=== PATIENT | male | born 1965 | race African-American/Black ===

== ENCOUNTER 2022-02-06 09:41 | Inpatient (IN) | payer OTHER ==
[2022-02-06 11:31] VITALS: BMI 23.0
[2022-02-06] MEDS ORDERED: ONDANSETRON *ODT* 4 MG TABLET SL PRN (12:12)
[2022-02-06] MEDS ORDERED: LOPERAMIDE HCL 2 MG CAPSULE PO PRN (12:12)
[2022-02-06] MEDS ORDERED: DICYCLOMINE HCL 10 MG CAPSULE PO PRN (12:12)
[2022-02-06] MEDS ORDERED: BENZOCAINE/MENTHOL (CHLORASEPTIC ) LOZENGE MM PRN (12:12)
[2022-02-06] MEDS ORDERED: NICOTINE POLACRILEX 2 MG GUM BUC PRN (12:12)
[2022-02-06] MEDS ORDERED: MAG HYDROX/AL HYDROX/SIMETH 30 ML UNIT-DOSE CUP PO PRN (12:12)
[2022-02-06] MEDS ORDERED: BISMUTH SUBSALICYLATE 524 MG/30 ML PO PRN (12:12)
[2022-02-06] MEDS ORDERED: ACETAMINOPHEN 325 MG TABLET (FP) PO PRN ×2 (12:12)
[2022-02-06] MEDS ORDERED: IBUPROFEN 400 MG TABLET (FP) PO PRN (12:12)
[2022-02-06] MEDS ORDERED: IBUPROFEN 600 MG TABLET (FP) PO PRN (12:12)
[2022-02-06] MEDS ORDERED: METHOCARBAMOL 500 MG TABLET PO PRN (12:12)
[2022-02-06] MEDS ORDERED: NICOTINE 10 MG CARTRIDGE (INHALER) IH PRN (12:12)
[2022-02-06] MEDS ORDERED: MAGNESIUM HYDROX 2400MG/30ML ORAL SUSPENSION 30 ML CUP PO PRN (12:12)
[2022-02-06] MEDS ORDERED: MAGNESIUM CITRATE 300 ML BOTTLE PO PRN (12:12)
[2022-02-06] MEDS ORDERED: chlordiazePOXIDE HCL 25 MG CAPSULE PO PRN (12:30)
[2022-02-06] MEDS: FLUOCINONIDE 0.05% CREAM (60 GM TUBE) TP SCH ×2 (14:06→23:08)
[2022-02-06] MEDS: hydrOXYzine PAMOATE 25 MG CAPSULE (FP) PO SCH ×3 (14:06→23:08)
[2022-02-06] MEDS: chlordiazePOXIDE HCL 25 MG CAPSULE PO SCH ×2 (18:24→23:08)
[2022-02-06] MEDS: MELATONIN 5 MG TABLETS PO SCH (23:08)
[2022-02-06] MEDS: THIAMINE HCL 100 MG TABLET (FP) PO SCH (23:08)
[2022-02-07] MEDS: hydrOXYzine PAMOATE 25 MG CAPSULE (FP) PO SCH ×5 (06:20→23:06)
[2022-02-07] MEDS: chlordiazePOXIDE HCL 25 MG CAPSULE PO SCH ×4 (06:20→23:06)
[2022-02-07 10:28] LABS: HEMATOCRIT 25.1 % (35.4-49); HEMOGLOBIN 8.2 GM/dL (11.7-16.9); MCH 28.3 pg (25.7-33.7); MCHC 32.8 g/dl (32.0-35.9); MEAN CELL VOLUME 86.3 fl (80-96); MEAN PLT VOLUME 7.7 fl (7.5-11.1); PLATELET COUNT 282 10^3/uL (134-434); RBC 2.91 M/mm3 (4.00-5.60); RDW 19.6 % (11.9-15.9); WHITE BLOOD COUNT 4.3 K/mm3 (4.0-10.0)
[2022-02-07] MEDS: NICOTINE 21 MG/24 HOURS TOPICAL PATCH TD SCH (10:54)
[2022-02-07] MEDS: FLUOCINONIDE 0.05% CREAM (60 GM TUBE) TP SCH ×2 (10:54→23:06)
[2022-02-07] MEDS: PRENATAL VITAMINS W/ FOLIC ACID TABLET (FP) PO SCH (10:54)
[2022-02-07 11:04] LABS: CALCIUM 8.2 mg/dL (8.5-10.1)
[2022-02-07 11:05] LABS: ALBUMIN 1.9 g/dl (3.4-5.0)
[2022-02-07 11:08] LABS: BILIRUBIN,TOTAL 0.2 mg/dL (0.2-1); CREATININE 1.1 mg/dL (0.55-1.3); TOT PROT 10.1 g/dl (6.4-8.2)
[2022-02-07] MEDS: THIAMINE HCL 100 MG TABLET (FP) PO SCH (23:06)
[2022-02-07] MEDS: MELATONIN 5 MG TABLETS PO SCH (23:06)
[2022-02-08] MEDS: chlordiazePOXIDE HCL 25 MG CAPSULE PO SCH ×5 (06:49→23:02)
[2022-02-08] MEDS: hydrOXYzine PAMOATE 25 MG CAPSULE (FP) PO SCH ×6 (06:49→23:02)
[2022-02-08 06:50] VITALS: RESP 18
[2022-02-08] MEDS ORDERED: cloNIDine HCL 0.1 MG TABLET PO ONE (10:16)
[2022-02-08] MEDS: NICOTINE 21 MG/24 HOURS TOPICAL PATCH TD SCH (10:22)
[2022-02-08] MEDS: PRENATAL VITAMINS W/ FOLIC ACID TABLET (FP) PO SCH (10:22)
[2022-02-08] MEDS: FLUOCINONIDE 0.05% CREAM (60 GM TUBE) TP SCH ×2 (10:57→23:02)
[2022-02-08 12:52] LABS: IRON SERUM 49 ug/dL (50-175); TOTAL IRON BINDING CAPACITY 319 ug/dL (250-450)
[2022-02-08] MEDS: MELATONIN 5 MG TABLETS PO SCH (23:02)
[2022-02-08] MEDS: THIAMINE HCL 100 MG TABLET (FP) PO SCH (23:02)
[2022-02-09] MEDS ORDERED: chlordiazePOXIDE HCL 10 MG CAPSULE PO PRN
[2022-02-09] MEDS: chlordiazePOXIDE HCL 10 MG CAPSULE PO SCH ×2 (06:43→10:16)
[2022-02-09] MEDS: hydrOXYzine PAMOATE 25 MG CAPSULE (FP) PO SCH ×3 (06:46→13:52)
[2022-02-09 09:34] VITALS: BP 141/91; PULSE 99; TEMP 96
[2022-02-09] MEDS ORDERED: FERROUS SO4 325 MG TABLET (FP) PO SCH (10:00)
[2022-02-09] MEDS: PRENATAL VITAMINS W/ FOLIC ACID TABLET (FP) PO SCH (10:17)
[2022-02-09] MEDS: NICOTINE 21 MG/24 HOURS TOPICAL PATCH TD SCH (10:17)
[2022-02-09] MEDS: FLUOCINONIDE 0.05% CREAM (60 GM TUBE) TP SCH (10:17)
[2022-02-10] MEDS ORDERED: chlordiazePOXIDE HCL 10 MG CAPSULE PO SCH (05:00)
[2022-02-11] MEDS ORDERED: chlordiazePOXIDE HCL 10 MG CAPSULE PO ONE (05:00)
== END 2022-02-09 11:58 | disposition left against medical advice (07) | DRG 774 ==
LOC: YASAS 09:41 → Y3N 13:17
PROVIDERS: ADMIT Allergy & Immunology; ATTEND Surgery
PROC: HZ2ZZZZ Detoxification Services for Substance Abuse Treatment (ICD-10-PCS; principal; 2022-02-06)
DX: F10.230 Alcohol dependence with withdrawal, uncomplicated (principal); F14.20 Cocaine dependence, uncomplicated; F12.20 Cannabis dependence, uncomplicated; F17.210 Nicotine dependence, cigarettes, uncomplicated; F31.9 Bipolar disorder, unspecified; D50.8 Other iron deficiency anemias; L84 Corns and callosities; F91.8 Other conduct disorders; Z91.19 Patient's noncompliance with other medical treatment and regimen; Z99.89 Dependence on other enabling machines and devices
CPT/HCPCS: 36415; 80053; 83540; 83550; 85027; 86780; C9803-CS; J0735; U0003; U0005